=== PATIENT | male | born 2000 | race Hispanic/Latino ===

== ENCOUNTER 2021-11-16 19:22 | Emergency (ER) | payer OTHER, SELFPAY ==
[2021-11-16] VITALS (23 sets, daily range): BP systolic 117–145; BP diastolic 62–100; PULSE 60–99; RESP 14–25; TEMP 36.3–36.9; O2SAT 99–100
--- NOTE | ~2021-11-16 | XR_ITS ---
EXAM: XR shoulder LT min 2V DATE: 11/16/2021 20:02 HISTORY: Lt shoulder pain, hx of dislocation . COMPARISON: None available. FINDINGS: Normal mineralization. No definite acute fracture. The humeral head is dislocated anterior ly and inferiorly. No lytic or blastic lesion. Joint spaces are maintained. No erosion or periosteal change. Soft tissues within normal limits. IMPRESSION: Anterior left shoulder dislocation. Reviewed, dictated and finalized at location K.
--- NOTE | ~2021-11-16 | XR_ITS ---
EXAM: XR shoulder LT min 2V DATE: 11/16/2021 21:33 HISTORY: POST reduction . COMPARISON: Same date at 7:56 PM. FINDINGS: The glenohumeral joint is now aligned anatomically. Flattening of the posterior lateral hu meral head may indicate acute or chronic Hill-Sachs type deformity. IMPRESSION: Successful interval left shoulder reduction. Reviewed, dictated and finalized at location K.
--- NOTE | 2021-11-16 20:01 | ED.UPPEXIN ---
HPI - Extremity Injury (Upper) General Chief Complaint: Extremity Injury, Upper <Jorge Morrell APRN - Last Filed: 11/17/21 19:41> Stated Complaint: possible shoulder dislocation <Jorge Morrell APRN - Last Filed: 11/17/21 19:41> Time Seen by Provider: 11/16/21 19:43 <Jorge Morrell APRN - Last Filed: 11/17/21 19:41> History of Present Illness HPI narrative: 21-year-old male history of left shoulder dislocation presents to the emergency room for evaluation of left shoulder pain. Patient states he woke up at 6:00 this evening complaining of left shoulder pain and was unable to move it. States symptoms today are similar to previous shoulder dislocations. Denies any known recent injury or trauma to his shoulder. <Jorge Morrell APRN - Last Filed: 11/17/21 19:41> Related Data Allergies/Adverse Reactions: Allergies Allergy/AdvReac Type Severity Reaction Status Date / Time No Known Allergies Allergy Unverified 08/21/18 20:40 <Jorge Morrell APRN - Last Filed: 11/17/21 19:41> Review of Systems Review of Systems: CONSTITUTIONAL: Denies fever, chills, or sweats. EYES: Denies visual changes, redness, or discharge. ENT: Denies rhinorrhea, congestion, sore throat, or otalgia. CARDIOVASCULAR: Denies chest pain, palpitations, or edema. RESPIRATORY: Denies cough or dyspnea. GASTROINTESTINAL: Denies abdominal pain, nausea, vomiting, or diarrhea. GENITOURINARY: Denies dysuria or hematuria. SKIN: Denies rash or itching. MUSCULOSKELETAL: Reports left shoulder pain NEUROLOGIC: Denies headache, numbness, dizziness, or weakness. PSYCHIATRIC: Denies anxiety or depression. <Jorge Morrell APRN - Last Filed: 11/17/21 19:41> PMFSH Social History Social History: Social History Smoking status: Never smoker <Jorge Morrell APRN - Last Filed: 11/17/21 19:41> Exam Narrative: GENERAL: Well-appearing, well-nourished, no physical limitations, and in no acute distress. HEAD: Normocephalic, atraumatic. EYES: Conjunctivae normal, PERRLA and EOMI. CHEST: Clear to auscultation. No respiratory distress. No wheezes rales or rhonchi. No tenderness. HEART: Regular rate and rhythm. No murmur heard. Normal peripheral pulses. EXTREMITIES: Left shoulder: Generalized tenderness, obvious bony abnormality, no range of motion due to pain, neurovascular is intact distally, no soft tissue swelling or ecchymosis present SKIN: Warm, dry, no rash. No noted wounds NEURO: No focal deficits. Alert and oriented x3. MAEW. CN's II-XI intact bilaterally, normal gait PSYCH: Cooperative. Normal mood and affect. <Jorge Morrell, ROOM SERVICE WAITER - Last Filed: 11/17/21 19:41> Course Vital Signs Vital signs: Vital Signs Temperature 36.4 C 11/16/21 19:37 Pulse Rate 74 11/16/21 19:37 Respiratory Rate 16 11/16/21 19:37 Blood Pressure 127/75 11/16/21 19:37 Pulse Oximetry 99 11/16/21 19:37 Oxygen Delivery Room Air 11/16/21 19:37 Temperature 36.9 C 11/16/21 21:54 Pulse Rate 85 11/16/21 22:11 Respiratory Rate 22 H 11/16/21 22:11 Blood Pressure 123/62 11/16/21 22:11 Pulse Oximetry 99 11/16/21 22:11 Oxygen Delivery Room Air 11/16/21 21:54 Oxygen Flow Rate 2 11/16/21 21:35 <Jorge Morrell, ROOM SERVICE WAITER - Last Filed: 11/17/21 19:41> Vital Signs Temperature 36.4 C 11/16/21 19:37 Pulse Rate 74 11/16/21 19:37 Respiratory Rate 16 11/16/21 19:37 Blood Pressure 127/75 11/16/21 19:37 Pulse Oximetry 99 11/16/21 19:37 Oxygen Delivery Room Air 11/16/21 19:37 Temperature 36.9 C 11/16/21 21:54 Pulse Rate 85 11/16/21 22:11 Respiratory Rate 22 H 11/16/21 22:11 Blood Pressure 123/62 11/16/21 22:11 Pulse Oximetry 99 11/16/21 22:11 Oxygen Delivery Room Air 11/16/21 21:54 Oxygen Flow Rate 2 11/16/21 21:35 <Gurpreet Onofre MD - Last Filed: 11/16/21 21:27> Procedures Orthopedic Joint Reduction Cheli
[2021-11-16] MEDS: fentaNYL CITRATE INJ (*CRX) 100 MCG/2 ML VIAL 50 MCG IV PUSH (20:31)
--- NOTE | 2021-11-16 21:25 | PC.NURSE ---
medication dosages given by Dr Onofre 2107- 50mg 2108-40mg shoulder not back in place per xray will reduce again 2124-40mg
--- NOTE | 2021-11-16 21:34 | PC.NURSE ---
consent signed and in paper chart
== END 2021-11-16 22:20 | disposition home or self-care (01) ==
PROVIDERS: Emergency Provider Nurse Practitioner Family
DX: M24.412 Recurrent dislocation, left shoulder (principal)
CPT/HCPCS: 23650; 73030; 96374; 99285; J2704; J3010; J7030